=== PATIENT | female | born 2000 | race Caucasian/White ===

== ENCOUNTER 2022-02-20 22:53 | Emergency (ER) | payer BC, SELFPAY ==
[2022-02-20 22:59] VITALS: BP 111/68; PULSE 76; RESP 14; TEMP 37; O2SAT 100; BMI 20.8
[2022-02-20 23:16] LABS: Appearance Urine Cloudy (Clear); Bilirubin Urine Negative (Negative); Blood Urine 3+ (Negative); Color Urine Yellow (Yellow); Glucose Urine Negative (Negative); Ketones Urine Negative (Negative); Leukocyte Esterase Urine 1+ (Negative); Nitrite Urine Positive (Negative); Protein Urine 2+ (Negative); Specific Gravity Urine 1.025 (1.000-1.030); Urobilinogen Urine 0.2 (0.2-1.0); pH Urine 6.5 (5.0-8.5)
--- NOTE | 2022-02-20 23:20 | ED.GENADULT ---
HPI - General Adult General Chief complaint: Urogenital Problems, Female Stated complaint: Possible UTI Time Seen by Provider: 02/20/22 23:13 History of Present Illness HPI narrative: This 21-year-old female comes in reporting some dysuria symptoms that began today. She has increased frequency, pain with voiding urine, and abdominal pain. She does not report any fevers. She also is requesting STD testing for chlamydia and gonorrhea. She states that she had an encounter with a patricia about a month ago had previous contact with many others. She states that she is not having any symptoms just wants to be tested to be safe. Related Data Home Medications Medication Instructions Recorded Confirmed bupropion HCl 150 mg 24 hr tablet, mg PO 02/20/22 extended release Allergies Allergy/AdvReac Type Severity Reaction Status Date / Time amoxicillin Allergy Mild Hives Verified 02/20/22 23:05 Review of Systems Status of ROS: Reports: 10 or more systems reviewed and unremarkable except as noted in History and below Narrative: Constitutional: No fevers, no weight gain or loss. Eyes: No discharge. No vision changes. HENT: No congestion, no sore throat, no ear pain. Cardiovascular: No chest pain, no palpitations. Respiratory: No shortness of breath, no wheezes, no cough. Gastrointestinal: No abdominal pain, no vomiting, no diarrhea. Genitourinary: Dysuria symptoms as described above. Musculoskeletal: Normal range of motion. Skin: No rashes, no pruritis. Neurological: No dizziness, weakness, sensory change, speech change. Endo/Heme/Allergies: No bruising or bleeding. No polydipsia. Pysch: no suicidality, no anxiety, no insomnia. All other systems reviewed and are negative. PFSH PFS Social History Smoking Status: Current every day smoker What tobacco products do you use: cigarettes Do you use any of these nicotine containing products: None Second hand tobacco smoke exposure: No How often do you have a drink containing alcohol: monthly or less AUDIT-C Alcohol total score: 1 Non-prescribed substance use: marijuana (any form) Exam Narrative: Exam Narrative: Constitutional: Well-developed, well-nourished, no acute distress. HEENT: Normocephalic, atraumatic. Neck: Normal range of motion. Nontender. Supple. Heart: Intact distal pulses. Lungs: No chest discomfort. No wheezes, rhonchi, or rales. Abdomen: Nontender. Genitalia: No sign of abnormality. No cervical motion tenderness. Back: Normal range of motion. Extremities: Normal range of motion. No injury. Skin: Intact. No rash. Warm. No erythema or pallor. Neurologic: No altered sensation. No weakness. Alert and oriented. Psychiatric: No suicidality. No anxiety or depression. No insomnia. Nursing notes and vitals signs are reviewed. Const: Vital Signs, click to edit/add: Vital Signs - 24 hr 02/20/22 22:59 Temperature 98.6 F Pulse Rate [Pulse Oximeter] 76 Respiratory Rate 14 Blood Pressure [Le ft Upper Arm] 111/68 Pulse Oximetry 100 Oxygen Delivery Me thod Room Air Course Vital Signs Vital signs: Initial Vital Signs Temperature 98.6 F 02/20/22 22:59 Temperature Source Temporal Artery Scan 02/20/22 22:59 Pulse Rate 76 02/20/22 22:59 Respiratory Rate 14 02/20/22 22:59 Blood Pressure 111/68 02/20/22 22:59 Blood Pressure Mean 82 02/20/22 22:59 Blood Pressure Position Supine 02/20/22 22:59 Pulse Oximetry 100 02/20/22 22:59 Oxygen Delivery Method 02/20/22 22:59 Vital Signs Temperature 98.6 F 02/20/22 22:59 Pulse Rate 76 02/20/22 22:59 Respiratory Rate 14 02/20/22 22:59 Blood Pressure 111/68 02/20/22 22:59 Pulse Oximetry 100 02/20/22 22:59 Oxygen Delivery Method 02/20/22 22:59 Temperature 98.6 F 02/20/22 22:59 Pulse Rate 76 02/20/22 22:59 Respiratory Rate 14 02/20/22 22:59 Blood Pressure 111/68 02/20/22 22:59 Pulse Oximetry 100 02/20/22 22:59 Oxygen Delivery Method 02/20/22 22:59 Medical Decision Making MDM Narrative Medical decision making narrative: This patient comes in with symptoms of dysuria but also wants to be safe and is requesting testing for GC and chlamydia. The patient did have such testing done along with a wet prep. This was done in the presence of the nurse. She is not having any symptoms related to sexually transmitted disease and her last encounter was about a month ago. I did not treat her prophylactically for these reasons. She does however have a urinary tract infection and received a prescription for Keflex. She also received a tablet of peridium for symptomatic relief. Lab Data Labs: Lab Results 02/20/22 Range/Units 22:59 Urine Color Yellow (Yellow) Urine Appearance Cloudy A (Clear) Urine pH 6.5 (5.0-8.5) Ur Specific Patterson 1.025 (1.000-1.030) Urine Protein 2+ A (Negative) Urine Glucose (UA) Negative (Negative) Urine Ketones Negative (Negative) Urine Blood 3+ A (Negative) Urine Nitrite Positive A (Negative) Urine Bilirubin Negative (Negative) Urine Urobilinogen 0.2 (0.2-1.0) Ur Leukocyte Esterase 1+ A (Negative) Urine RBC 25-50 A (0-2) Urine WBC 50-100 A (0-5) Ur Squamous Epith Cells Moderate A (None-Few) Urine Bacteria Moderate A (None) Discharge Plan Discharge Clinical Impression: Urinary tract infection Patient Disposition: Home, Self-Care Condition: Stable Additional Instructions: Take medication as prescribed. Follow up with MD or return if worsening. If lab results are positive, you will be notified by phone call. Prescriptions: No Action bupropion HCl 150 mg tablet extended release 24 hr PO Follow Up/Referrals: Dany Caro MD [Primary Care Provider] - Stand Alone Forms: [facility] Info Instructions
[2022-02-20 23:32] LABS: Bacteria Urine Moderate; RBC Urine 25-50 (0-2); Squamous Epithelial Cell Urine Moderate (None-Few); WBC Urine 50-100 (0-5)
--- NOTE | 2022-02-20 23:45 | ED.NURSE ---
MD in room to obtain wet prep and Ch/GC swabs. Business Development Agent at bedside.
[2022-02-21] LABS: Clue Cells <20% Clue Cells Seen (None Seen); Trichomonas No Trichomonas Seen (None Seen); Yeast No Yeast Seen (None Seen)
[2022-02-21] MEDS: PHENAZOPYRIDINE HCL 200 MG TABLET PO (00:03)
[2022-02-21 01:24] LABS: Chlamydia DNA Amplified* NOT DETECTED (No Detected); GC DNA Amplified* NOT DETECTED (No Detected)
== END 2022-02-21 00:06 | disposition home or self-care (01) ==
PROVIDERS: Emergency Provider Emergency Medicine Emergency Medical Services; PCP Family Medicine; Referring Provider Emergency Medicine Emergency Medical Services; Visit Provider Family Medicine
DX: N39.0 Urinary tract infection, site not specified (principal)
CPT/HCPCS: 81001; 87086; 87186; 87210; 87491; 87591; 99283; 99284; A9270

== ENCOUNTER 2022-05-09 14:07 | Outpatient (CLI) | payer BC, SELFPAY ==
[2022-05-09 23:08] LABS: Chlamydia DNA Amplified* NOT DETECTED (No Detected); GC DNA Amplified* NOT DETECTED (No Detected)
== END 2022-05-09 14:08 | disposition home or self-care (01) ==
PROVIDERS: Visit Provider Nurse Practitioner Family
DX: Z11.3 Encounter for screening for infections with a predominantly sexual mode of transmission (principal); Z11.9 Encounter for screening for infectious and parasitic diseases, unspecified
CPT/HCPCS: 0353U; 86592; 86701; 86702; 86704; 86803; 87536

== ENCOUNTER 2022-05-19 19:18 | Emergency (ER) | payer BC, SELFPAY ==
[2022-05-19 19:39] VITALS: BP 125/78; PULSE 99; RESP 18; TEMP 36.8; O2SAT 99; BMI 20.8
--- NOTE | 2022-05-19 20:32 | ED_ITS ---
HPI - General Adult General Chief complaint: Cough Stated complaint: Shortness of breath from illness Time Seen by Provider: 05/19/22 20:00 History of Present Illness HPI narrative: This 21-year-old female comes in reporting 3-5 days of upper respiratory infection symptoms including cough, hoarse voice, nasal congestion. She does not report a sore throat or ear pain. She did not measure her temperature but states that she did feel feverish initially. She reports some shortness of breath with these symptoms also. She does arrive with normal vital signs. Related Data Home Medications Medication Instructions Recorded Confirmed bupropion HCl 150 mg 24 hr tablet, 150 mg PO DAILY 02/20/22 05/19/22 extended release norethindrone acetate 1 mg-ethinyl 1 tab PO DAILY 05/09/22 05/19/22 estradiol 20 mcg tablet (Junel) buspirone 10 mg tablet 10 mg PO BID 05/19/22 05/19/22 Previous Rx's Medication Instructions Recorded acetaminophen 300 mg-codeine 30 mg 1 tab PO Q6H PRN pain #15 tabs 05/19/22 tablet Allergies Allergy/AdvReac Type Severity Reaction Status Date / Time amoxicillin Allergy Mild Hives Verified 05/19/22 19:42 Review of Systems Status of ROS: Reports: 10 or more systems reviewed and unremarkable except as noted in History and below Narrative: Constitutional: No weight gain or loss. Eyes: No discharge. No vision changes. HENT: Nasal congestion, no sore throat, no ear pain. Cardiovascular: No chest pain, no palpitations. Respiratory: She reports cough and shortness of breath. Gastrointestinal: No abdominal pain, no vomiting, no diarrhea. Genitourinary: No dysuria, no hematuria. Musculoskeletal: Normal range of motion. Skin: No rashes, no pruritis. Neurological: No dizziness, weakness, sensory change, speech change. Endo/Heme/Allergies: No bruising or bleeding. No polydipsia. Pysch: no suicidality, no anxiety, no insomnia. All other systems reviewed and are negative. PFSH PFSH Medical History Routine screening for STI (sexually transmitted infection) ?Z11.3 - Encounter for screening for infections with a predominantly sexual mode of transmission (ICD-10) Unprotected sex ?Z72.51 - High risk heterosexual behavior (ICD-10) Surgical History (Updated 05/19/22 @ 20:19 by Quinton Larson RN) No significant past surgical history Social History Smoking Status: Current some day smoker What tobacco products do you use: cigarettes Do you use any of these nicotine containing products: E-Cigarettes Second hand tobacco smoke exposure: No How often do you have a drink containing alcohol: monthly or less How often do you have six or more drinks on one occasion: Never AUDIT-C Alcohol total score: 1 Non-prescribed substance use: marijuana (any form) Exam Narrative: Exam Narrative: Constitutional: Well-developed, well-nourished, no acute distress. HEENT: Normocephalic, atraumatic. Oropharynx appears normal without tonsillar hypertrophy or exudate. Tympanic membranes appear normal bilaterally. Neck: Normal range of motion. Nontender. Supple. Heart: Regular. No murmurs. Normal rate. Intact distal pulses. Lungs: Clear to auscultation. No chest discomfort. No wheezes, rhonchi, or rales. No use of accessory muscles for breathing. Abdomen: Normal bowel sounds. Nontender. No rebound tenderness. Genitalia: Deferred. Back: No midline tenderness. Normal range of motion. Extremities: Normal range of motion. No injury. Skin: Intact. No rash. Warm. No erythema or pallor. Neurologic: No altered sensation. No weakness. Alert and oriented. Psychiatric: No suicidality. No anxiety or depression. No insomnia. Nursing notes and vitals signs are reviewed. Const: Vital Signs, click to edit/add: Vital Signs - 24 hr 05/19/22 19:39 Temperature 98.2 F Pulse Rate [Right Pulse Oximeter] 99 Respiratory Rate 18 Blood Pressure [Ri ght Upper Arm] 125/78 Pulse Oximetry 99 Oxygen Delivery Me thod Room Air Course Vital Signs Vital signs: Initial Vital Signs Temperature 98.2 F 05/19/22 19:39 Temperature Source Temporal Artery Scan 05/19/22 19:39 Pulse Rate 99 05/19/22 19:39 Respiratory Rate 18 05/19/22 19:39 Blood Pressure 125/78 05/19/22 19:39 Blood Pressure Mean 93 05/19/22 19:39 Blood Pressure Position Sitting 05/19/22 19:39 Pulse Oximetry 99 05/19/22 19:39 Oxygen Delivery Method Room Air 05/19/22 19:39 Vital Signs Temperature 98.2 F 05/19/22 19:39 Pulse Rate 99 05/19/22 19:39 Respiratory Rate 18 05/19/22 19:39 Blood Pressure 125/78 05/19/22 19:39 Pulse Oximetry 99 05/19/22 19:39 Oxygen Delivery Method Room Air 05/19/22 19:39 Temperature 98.2 F 05/19/22 19:39 Pulse Rate 99 05/19/22 19:39 Respiratory Rate 18 05/19/22 19:39 Blood Pressure 125/78 05/19/22 19:39 Pulse Oximetry 99 05/19/22 19:39 Oxygen Delivery Method Room Air 05/19/22 19:39 Medical Decision Making MDM Narrative Medical decision making narrative: This patient comes in with symptoms of upper respiratory infection. She does report some feeling of shortness of breath but has normal vital signs here with oximetry at 99% on room air. She is not using accessory muscles for breathing. She did receive an oral dose of dexamethasone 10 mg. I did not hear wheezing and did not then prescribe albuterol. She did receive a prescription for tablets of Tylenol 3 for additional symptomatic relief. Discharge Plan Discharge Clinical Impression: Acute upper respiratory infection Patient Disposition: Home, Self-Care Condition: Stable Additional Instructions: Take medication as prescribed. Follow up with MD or return if worsening symptoms happen. Prescriptions: New acetaminophen-codeine 300-30 mg tablet 1 tab PO Q6H PRN (Reason: pain) Qty: 15 0RF No Action norethindrone ac-eth estradiol [03/07 (21)] 1-20 mg-mcg tablet 1 tab PO DAILY bupropion HCl 150 mg tablet extended release 24 hr 150 mg PO DAILY buspirone 10 mg tablet 10 mg PO BID Follow Up/Referrals: Provider,Not a Local [Primary Care Provider] - Stand Alone Forms: [employer] Info Instructions
[2022-05-19] MEDS: dexAMETHasone 10 MG/ML inj PO (20:40)
[2022-05-19 20:51] VITALS: BP 128/84; PULSE 90; RESP 18; TEMP 36.6; O2SAT 99
[2022-05-19 20:52] VITALS: BP 128/84; PULSE 90; RESP 18; TEMP 36.6
== END 2022-05-19 20:52 | disposition home or self-care (01) ==
PROVIDERS: Emergency Provider Emergency Medicine Emergency Medical Services
DX: J06.9 Acute upper respiratory infection, unspecified (principal)
CPT/HCPCS: 99283; 99284; J1100

== ENCOUNTER 2023-09-21 15:26 | Outpatient (CLI) | payer BC, SELFPAY ==
--- OUTSIDE RECORDS SUMMARY | 2023-09-21 15:28 | XMS_ITS | Clinical Summary ---
Author Organization [facility] Address [place], [place] [address] Care Team Providers Care Supervisor Riprap Placing Name Role Phone Sun Matthews MD Primary Care Provider [phone] Allergies Active Allergy Reactions Criticality Noted Date Comments Amoxicillin Rash,Hives Low 12/04/2012 Medications Medication Sig Dispensed Refills Start Date End Date Status albuterol HFA (VENTOLIN HFA) 90 mcg/actuation inhalerIndications:E xercise-induced asthma INHALE ONE TO TWO PUFFS BY MOUTH 15-30 MINUTES PRIOR TO EXERCISE/RUNNING 1 Inhaler 1 05/18/2019 Active triamcinolone (ARISTOCORT; KENALOG) 0.1 % creamIndications:Swi mmer's itch Apply topically to affected area(s) 3 times daily. 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 90 Tablet 12/03/2022 Active traZODone (DESYREL) 50 mg tabletIndications:Ps ychophysiological insomnia Take 0.5-1 Tablets (25-50 mg) by mouth at bedtime if needed for Sleep. 90 Tablet 12/03/2022 Active Active Problems Problem Noted Date Diagnosed Date Allergic rhinitis, cause unspecified 02/26/2012 Immunizations Name Administration Dates Next Due AMB Influenza, IIV3 (Age >=3 years) Preserve Free (Flu Clinic Only) 12/06/2010 AMB Influenza, IIV3 (Age >=3 years)(Flu Clinic Only) 12/09/2012,12/04/2011,12/04/2009,11/20 AMB Influenza, IIV4 PF (=>6 mos Flulaval,Fluzone Fluarix)(Flu Clinic Only) 12/22/2018,12/09/2016 DTaP 09/08/2007,12/15/2003 [id number]-[id number]-HNN (Pediarix) 2002,2002,0 2002 Dtap-5 Pertussis Antigens 09/08/2007,12/15/2003 HIB PRP-OMP (PedvaxHIB) 06/29/2003,2002, HIB PRP-T (ActHIB,Hiberix) 06/29/2003,2002 ,2002 HPV 9 (Gardasil 9) 10/22/2017,10/03/2015 Hepatitis A (Peds) 10/03/2015,04/25/2014 Inactivated Polio Vaccine 09/08/2007 Influenza Virus, Unspecified 11/30/2014, 12/09/2012,12/04/2011,12/06,12/04/2009,11/20/2008 Influenza, IIV3 (Age >=3 years) 11/30/2014 Influenza, IIV4 02/06/2020, 8,11/13/2015,11/10 MMR 09/08/2007,06/29/2003 Meningococcal Vaccine (Menactra) 10/04/2018,04/16 Meningococcal Vaccine (Menveo) 10/04/2018,2014 Pneumococcal conj 7-Valent (Prevnar 7) 1 ,2002,2002,07/18 Tdap 04/25/2014 Varicella Vaccine 09/08/2007,12/15/2003 Family History Medical History Relation Name Comments Diabetes Maternal Grandfather type 2 Heart Disease Maternal Uncle tricuspid va lve replacement Asthma Mother Asthma Sister related to collette rgies Cancer-breast No Family History Cancer-colon No Family History Hyperlipidemia No Family History Relation Name Status Comments Maternal Grandfather Maternal Uncle Mother Sister Social History Tobacco Use Types Packs/Day Years Used Date Smoking Tobacco: Never Smokeless Tobacco: Never Tobacco Cessation:Counseling Given: Yes Comments:no exposure Alcohol Use Standard Drinks/Week Comments Yes 0 (1 standard drink = 0.6 oz pur e alcohol) PHQ-2 Answer Date Recorded PHQ-2 TOTAL SCORE 3 05/26/2022 Social Connections Answer Date Recorded Frequency of Communication with Friends and Fami ly Not on file 07/28/2022 Alcohol Use Answer Date Recorded How often do you have a drink containing alcohol ? 2 05/26/2022 How many drinks containing a lcohol do you have on a typical day when you are drinking? 1 05/26/2022 Frequency of Binge Drinking Not on file 05/17 Financial Resource Strain Answer Date R ecorded Difficulty of Paying Living Expenses 3 07/25/2021 Difficulty of Paying Living Expenses Not on file 07/25/2021 Food Insecurity Answer Date Recorded Worried About Running Out of Food in the Last Ye ar 1 07/25/2021 Transportation Needs Answer Date Record ed Lack of Transportation (Medical) 1 07/25/2021 Housing Stability Answer Date Recorded Unable to Pay for Housing in the Last Year 1 07/25/2021 Sex and Gender Information Value Date Recorded Sex Assigned at Not on file Gender Identity Not on file Sexual Orientation Not on file Obstetrics History Para Term AB IAB SAB Ectopic Multiple Livin g Live Births 0 0 0 0 0 0 0 0 0 0 0 Last Filed Vital Signs Vital Sign Reading Time Taken Comments Blood Pressure 122/79 05/26/2022 1:29 PM CDT Pulse 85 05/26/2022 1:29 PM CDT Temperature 37.3 ??C (99.2 ??F) 12/04/2021 9:48 AM CD T Respiratory Rate 18 10/27/2021 11:34 AM CDT Oxygen Saturation 98% 12/04/2021 9:48 AM CDT Inhaled Oxygen Concentration - - Weight 58 kg (127 lb 12.8 oz) 05/26/2022 1:29 PM CDT Height 166.4 cm (5' 5.5) 04/30/2021 10:56 AM CD T Body Mass Index - - Plan of Treatment Upcoming Encounters Date Type Department Care Team (Late st Contact Info) Description 09/29/2023 7:40 AM CDT Office Visit [facility] [address] [place] [address] IvanKristian christie DO [address] [place] [address] Health Maintenance Due Date Last Done Comments Hepatitis C screening for age 18-79 2020 BMI (ht and wt on same day) for age 18+ 04/30/2022 04/30/2021, 07/04/2020, 06/19/2020 Chlamydia for age 16-24 05/09/2022 05/10/19, 01/10/2020, 04/27/2019 COVID-19 vaccine series ( season) 2022 09/22/2021 Pap test for age 21-65 05/23/2023 Depression screening for age 12+ 05/27/2023 05/26/2022, 04/09/2022, 04/08/2022, Additional history exists Influenza for age 9-49 10/18/2023 , 12/22/2018, 10/22/2017, Additional history exists Tetanus booster 04/25/2024 04/25/2014 Pneumococcal series for age 6-64 Aged Out 12/15/2003, 2002, 2002, Additional history exists No longer eligible based on patient's age to complete this topic Tdap Completed 04/25/2014 HPV series for age 9-26 Completed 10/22/2017, 10/02 HIV for age 15-65 Completed 10/04/2018 Meningococcal series for age 11-21 Completed 10/04/2018, 10/04/2018, 04/25/2014, Additional history exists Procedures Procedure Name Priority Date/Time Associated Diagnosis Comments GC CHLAMYDIA TRACH PROBE Routine 05/09/2021 9:58 AM CDT Encounter for insertion of intrauterine contraceptive device (IUD) ANTI HIV 1/2 Routine 10/04/2018 11:34 AM CDT Screening examination for STD (sexually transmitted disease) from Last 3 Months or Most Recently Relevant to Health Maintenance Results * GC & CHLAMYDIA DNA PCR [[id number]] (05/09/2021 9:58 AM CDT) CHLAMYDIA PROBE Negative 8:42 PM CDT [facility] N GONORRHOEAE PROBE Negative 05/09/2021 8:42 PM CDT [facility] Other ENDOCERVICAL CYTOLOGIC MATERIAL / Unknown Non-Blood / Unknown 05/09/2021 9:58 AM CDT 05/09/2021 10:20 AM CDT Sun Matthews MD MICRO[facility]OLOGY [facility] [address] [place] [address], * ANTI HIV 1/2 (10/04/2018 11:34 AM CDT) HIV-1/HIV-2 ANTIBODY Non-Reacti ve Non-Reacti ve 10/04/2018 5:42 PM CDT [facility] Comment:HIV-1 p24 and HIV-1/ HIV-2 Ab not detected. Blood BLOOD SPECIMEN / Unknown Venipuncture / Unknown 10/04/2018 11:34 AM CDT 10/04/2018 11:37 AM CDT Latisha Son MD SEND OUTS [facility] [address] [place] [address], from Last 3 Months or Most Recently Relevant to Health Maintenance Advance Directives * Full Code (Latest Code Status on File) Date Activated Date Inactivated Comments 01/14/2013 9:06 AM 01/14/2013 1:39 PM * Full Code Date Activated Date Inactivated Comments 01/14/2013 6:57 AM 01/14/2013 8:25 AM Care Teams Supervisor Riprap Placing Relationship Specialty Start Date End Date Sun Matthews MD [address] [place] [address] PCP - General Family Practice 09/19/20
[2023-09-21 23:32] LABS: Chlamydia DNA Amplified* NOT DETECTED (No Detected); GC DNA Amplified* NOT DETECTED (No Detected)
== END 2023-09-21 15:27 | disposition home or self-care (01) ==
PROVIDERS: PCP Family Medicine; Visit Provider Nurse Practitioner Family
DX: Z72.51 High risk heterosexual behavior (principal); Z11.3 Encounter for screening for infections with a predominantly sexual mode of transmission
CPT/HCPCS: 86592; 86703; 87491; 87591

== ENCOUNTER 2024-10-22 12:09 | Emergency (ER) | payer BC, SELFPAY ==
--- OUTSIDE RECORDS SUMMARY | 2024-10-22 12:11 | XMS_ITS | Clinical Summary ---
Author Organization [facility] Address [address] [place] [id number] Care Team Providers Care Mosaic Tiler Name Role Phone Sun Matthews MD Primary Care Provider [phone] Allergies Active Allergy Reactions Criticality Noted Date Comments Amoxicillin Rash,Hives Low 12/04/2012 Medications buPROPion (Wellbutrin XL) 150 mg Extended-Release tabletIndication s:Moderate episode of recurrent major depressive disorder (HC) Take 1 Tablet (150 mg) by mouth once daily. 30 Tablet 1 07/22/2024 Active ferrous gluconate 324 mg (37 mg iron) tabletIndication s:Iron deficiency Take one tablet by mouth every other day. 60 Tablet 08/26/2024 Active Hospital, Clinic, or Other Facility Administered Medication Ordered Dose Route Frequency Start Date End Date Status ferumoxytoL (FERAHEME) 510 mg/17 mL (30 mg/mL) injection 510 mgIndications:Iron deficiency 510 mg IV ONE TIME PRN 10/20/2024 11/18/2024 Active Active Problems Problem Noted Date Diagnosed Date Iron deficiency 08/26/2024 MDD (major depressive disord er), recurrent severe, without psychosis 07/13/2024 Allergic rhinitis, cause unspecified 02/26/2012 Encounters Date Type Department Care Team Description 10/20/2024 9:00 AM CDT Nurse/Clinic Staff Only [facility] [address] [place] [address] Infusion Therapy (Feraheme 1/2 ) 10/19/2024 Travel 10/07/2024 10:00 AM CDT Ancillary Procedure [facility] [address] [place] [address] 10/07/2024 Travel 10/06/2024 Telephone [facility] [address] [place] [address] Sun Matthews MD Referral (echo) 10/04/2024 Telephone [facility] [address] [place] [address] Olivia Trejo PA Appointment (Feraheme infusion x 2 ) 09/26/2024 10:30 AM CDT Orders Only [facility] [address] [place] [address] Lab, [facility] 09/26/2024 Travel 09/22/2024 Travel 09/05/2024 11:45 AM CDT Nurse/Clinic Staff Only [facility] [address] [place] [address] Immunization/Inject ion (TDAP VACCINE ); Immunization/Inject ion 09/05/2024 Travel 08/25/2024 7:00 AM CDT Telemedicine [facility] [address] [place] [address] Brianna Trejo NP Telehealth; Medication Management 08/25/2024 Orders Only [address] Warren [address] [place] [address] Lobito Vick 1 scan: (1-Ord) [facility] WH: EKG final signed 08/24/2024 3:00 PM CDT Office Visit [address] [place] [address] Rufus Hutchins MD Consult; CV General Cardiology New (new) 08/22/2024 Telephone [facility] [address] [facility] [address] [place] [phone] Cardiology, Anw Appointment (/) 07/22/2024 8:00 AM CDT Telemedicine [facility] [address] [place] [address] Brianna Trejo NP Telehealth from Last 3 Months Immunizations Immunization Administration Dates Next Due AMB Influenza, IIV3 (Age >=3 years) Preserve Free (Flu Clinic Only) 12/06/2010 AMB Influenza, IIV3 (Age >=3 years)(Flu Clinic Only) 12/09/2012,12/04/2011,12/04/2009,11/20 AMB Influenza, IIV4 PF (=>6 mos Flulaval,Fluzone Fluarix)(Flu Clinic Only) 12/22/2018,12/09/2016 DTaP 09/08/2007,12/15/2003 UPbD-BkzJ-MRR (Pediarix) 2002,2002,0 2002 Dtap-5 Pertussis Antigens 09/08/2007,12/15/2003 HIB PRP-OMP (PedvaxHIB) 06/29/2003,2002, HIB PRP-T (ActHIB,Hiberix) 06/29/2003,2002 ,2002 HPV 9 (Gardasil 9) 10/22/2017,10/03/2015 Hepatitis A (Peds) 10/03/2015,04/25/2014 Inactivated Polio Vaccine 09/08/2007 Influenza Virus, Unspecified 11/30/2014, 12/09/2012,12/04/2011,12/06,12/04/2009,11/20/2008 Influenza, IIV3 (Age >=3 years) 11/30/2014 Influenza, IIV4 02/06/2020, 8,11/13/2015,11/10 MENINGOCOCCAL VACCINE 2 VIAL 2MO-55YO (MENVEO) 10/04/2018,04/25/2014 MMR 09/08/2007,06/29/2003 Meningococcal Vaccine (Menactra) 10/04/2018,04/16 Pneumococcal conj 7-Valent (Prevnar 7) 1 ,2002,2002,07/18 Tdap 09/05/2024,04/25/2014 Varicella Vaccine 09/08/2007,12/15/2003 Family History Medical History Relation Name Comments Diabetes Maternal Grandfather type 2 Heart Disease Maternal Uncle tricuspid va lve replacement Asthma Mother Hyperthyroidism Paternal Aunt Asthma Sister related to collette rgies Cancer-breast No Family History Cancer-colon No Family History Hyperlipidemia No Family History Relation Name Status Comments Maternal Grandfather Maternal Uncle Mother Paternal Aunt Alive Sister Social History Tobacco Use Types Packs/Day Years Used Date Smoking Tobacco: Never Smokeless Tobacco: Never Tobacco Cessation:Counseling Given: Yes Comments:no exposure Alcohol Use Standard Drinks/Week Comments Yes 0 (1 standard drink = 0.6 oz pur e alcohol) PHQ-2 Answer Date Recorded PHQ-2 TOTAL SCORE 5 07/22/2024 Social Connections Answer Date Recorded Do you often feel lonely or isolated from those around you? 0 07/13/2024 Alcohol Use Answer Date Recorded How often do you have a drink containing alcohol ? 2 05/26/2022 How many drinks containing a lcohol do you have on a typical day when you are drinking? 1 05/26/2022 Frequency of Binge Drinking Not on file 05/17 Financial Resource Strain Answer Date R ecorded Difficulty of Paying Living Expenses 3 07/13/2024 Difficulty of Paying Living Expenses Not on file 07/13/2024 Food Insecurity Answer Date Recorded Do you worry your food will run out before you are able to buy more? 1 07/13/2024 Transportation Needs Answer Date Record ed Does lack of transportation keep you from medica l appointments? 1 07/13/2024 Does lack of transportation keep you from work, meetings or getting things that you need? 1 07/13/2024 Housing Stability Answer Date Recorded What is your housing situation today? 2 07/13/2024 Utilities Answer Date Recorded Do you have trouble paying f or utilities (for example, heat, electricity, water, phone)? 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 Gender Identity Not on file Sexual Orientation Not on file Obstetrics History Para Term AB IAB SAB Ectopic Multiple Livin g Live Births 0 0 0 0 0 0 0 0 0 0 0 Last Filed Vital Signs Vital Sign Reading Time Taken Comments Blood Pressure 100/58 10/20/2024 10:09 AM CDT Pulse 68 10/20/2024 10:09 AM CDT Temperature 36.3 C (97.4 F) 10/20/2024 10:03 AM CDT Respiratory Rate 18 10/27/2021 11:34 AM CDT Oxygen Saturation 98% 10/20/2024 10:09 AM CDT Inhaled Oxygen Concentration - - Weight 59.9 kg (132 lb) 08/24/2024 2:58 PM CDT Height 165.1 cm (5' 5) 08/24/2024 2:58 PM CDT Body Mass Index 21.97 08/24/2024 2:58 PM CDT Plan of Treatment Upcoming Encounters Date Type Department Care Team (Late st Contact Info) Description 10/27/2024 9:00 AM CDT Nurse/Clinic Staff Only [facility] [address] [place] [address] 10/27/2024 10:50 AM CDT Office Visit [facility] [address] [place] [address] Rufus Richardson MD [address] [place] [address] Health Maintenance Due Date Last Done Comments Hepatitis C screening for ag e 18-79 2020 Pneumococcal series for age 6-49 (1 of 2 - PCV) 2021 12/15/2003, 2002, 2002, Additional history exists Chlamydia for age 16-24 05/09/2022 05/10/19 22, 01/10/2020, 04/27/2019 Pap test for age 21-65 05/23/2023 COVID-19 vaccine series (2 - 2024- season) 2024 09/22/2021 Influenza Vaccine (#1) 2024 , 12/22/2018, 10/22/2017, Additional history exists Depression screening for age 12+ 07/22/2025 07/22/2024, 07/13/2024, 05/26/2022, Additional history exists BMI (ht and wt on same day) for age 18+ 08/24/2025 08/24/2024, 04/30/2021, 07/04/2020, Additional history exists Tetanus booster 09/05/2034 09/05/2024, 04/25/2014 RSV vaccine for adults or (1 - 1-dose 75+ series) 2077 Hepatitis B series for 19+ Completed 12/05, 2002, 2002 HPV series for age 9-45 Completed 10/22/2017, 10/02 HIV for age 15-65 Completed 10/04/2018 Procedures Procedure Name Priority Date/Time Associated Diagnosis Comments ECHO TTE COMPLETE WO CONTRAST Routine 10/07/2024 10:25 AM CDT Syncope and collapse Nonsustained ventricular tachycardia (HC) Ventricular pre-excitation FERRITIN Routine 09/26/2024 10:25 AM CDT Iron deficiency IRON PLUS IRON BINDING CAP Routine 09/26/2024 10:25 AM CDT Iron deficiency EKG 12 LEAD Routine 08/24/2024 Syncope and collapse Nonsustained ventricular tachycardia (HC) Ventricular pre-excitation GC CHLAMYDIA TRACH PROBE Routine 05/09/2021 9:58 AM CDT Encounter for insertion of intrauterine contraceptive device (IUD) ANTI HIV 1/2 Routine 10/04/2018 11:34 AM CDT Screening examination for STD (sexually transmitted disease) from Last 3 Months or Most Recently Relevant to Health Maintenance Results * ECHO TTE COMPLETE WO CONTRAST (10/07/2024 10:25 AM CDT) AORTIC VALVE MEAN PG 4 mmHg EJECTION FRACTION 73 % LVEDD 3.7 cm EJECTION FRACTION 70 - 75% Anatomical Region Laterality Modality Ultrasound 10/07/2024 10:0 4 AM CDT Narrative 10/07/2024 10:35 AM CDT ECHOCARDIOGRAM MALIK METZ : 2000 24 years Study Date: 10/07/2024 10:04:36 AM Gender: F BP: 120/60 mmHg Height: 165.00 cm BSA: 1.66 m Weight: 60.00 kg Tech: JUDE Referring MD: RUFUS HUTCHINS Site: [facility] Reading Location: Mobile-OP Patient Location: Outpatient. Procedure: 2D, Color Doppler and Spectral Doppler. Indication for study: Palpitations, Syncope Cardiac Rhythm: Regular.Study quality: Good. Final Impressions: 1. Normal LV size, normal wall thickness, normal global systolic function with an estimated EF of 70 - 75%. 2. Normal left ventricular size, normal wall thickness, normal global systolic function, calculated EF of 73 %. 3. Right ventricular cavity size is normal, global systolic RV function is normal. 4. No significant valve disease detected. Comparison There are no prior studies on this patient for comparison purposes. Chamber Sizes and Function Normal left ventricular size, normal wall thickness, normal global systolic function, calculated EF of 73 %. Normal left ventricular size, normal wall thickness, normal global systolic function with an estimated EF of 70 - 75%. No resting regional wall motion abnormality visualized. Left atrial size is normal. Left atrial pressure is normal. Right ventricular cavity size is normal, global systolic RV function is normal. RV wall thickness is normal. The right atrium is normal. Right atrial volume index is 17 ml/m . Right atrial area is 12 cm . The pulmonary artery is of normal size and origin. The sinus of Valsalva is normal sized. The ascending aorta is not well visualized. Valves, RV Pressures and Diastolic Function The aortic valve is normal in structure and trileaflet, no stenosis and no regurgitation. The mitral valve is normal in structure, no mitral regurgitation. Normal diastolic function. The tricuspid valve is normal in structure, regurgitation is not evident tricuspid regurgitation. The pulmonic valve is normal. No pulmonary regurgitation. Masses, Effusion, Shunts There is no pericardial effusion. The inferior vena cava is normal sized, respiratory size variation greater than 50%. No left to right shunting was detected by limited color flow Doppler interrogation of the interatrial septum. MEASUREMENTS AND CALCULATIONS 2-D Measurements and LV Function: LVID (d) 3.7 cm Planimetered EF 73 % LVID (s) 2.4 cm LV FS% (2D) 35 % IVS (d) 0.8 cm LVOT diameter 2.2 cm LVPW (d) 0.8 cm HR 66 bpm Ao Sinus 2.8 cm LA Vol index 19 ml/m2 Ao Sinus ULN 3.3 cm RA Vol index 17 ml/m2 Asc Ao ULN 3.1 cm RA area 12 cm LA 3.3 cm RV Basal Diam 3.3 cm Diastology: Mitral Tissue Doppler Pulmonary veins E Peak 1.3 m/s e', Septum 0.14 m/s Pulm s 38.3 cm/s A Peak 0.6 m/s e', Lateral 0.18 m/s Pulm d 52.7 cm/s E/A 2.3 E/e' Average 7.86 Pulm s/d ratio 0.73 DT 206 msec Aortic Valve: Vmax 1.3 m/s GUSTAVO (V) 2.78 cm VTI 0.29 m GUSTAVO (I) 2.84 cm LVOT V max 1.0 m/s Max PG 7 mmHg LVOT VTI 0.23 m Mean PG 4 mmHg SV 84 ml Dim Index 0.78 SV index 50 ml/m CO 5.5 l/min CI 3.3 l/min/m Mitral Valve: MVA 3.7 cm MV P 1/2 60 msec Tricuspid Valve and estimated PA pressures: TAPSE 2.7 cm Pulmonic Valve: PV AT 202 msec . This study was interpreted by an [facility] accredited facility. Final Procedure Note Nitin Quiroz MD - 10/07/2024 ECHOCARDIOGRAM MALIK METZ : 2000 24 years Study Date: 10/07/2024 10:04:36 AM Gender: F BP: 120/60 mmHg Height: 165.00 cm BSA: 1.66 m Weight: 60.00 kg Tech: JUDE Referring MD: RUFUS HUTCHINS Site: [facility] Reading Location: Mobile-OP Patient Location: Outpatient. Procedure: 2D, Color Doppler and Spectral Doppler. Indication for study: Palpitations, Syncope Cardiac Rhythm: Regular.Study quality: Good. Final Impressions: 1. Normal LV size, normal wall thickness, normal global systolic functionwith an estimated EF of 70 - 75%. 2. Normal left ventricular size, normal wall thickness, normal globalsystolic function, calculated EF of 73 %. 3. Right ventricular cavity size is normal, global systolic RV functionis normal. 4. No significant valve disease detected. Comparison There are no prior studies on this patient for comparison purposes. Chamber Sizes and Function Normal left ventricular size, normal wall thickness, normal globalsystolic function, calculated EF of 73 %. Normal left ventricular size,normal wall thickness, normal global systolic function with an estimatedEF of 70 - 75%. No resting regional wall motion abnormality visualized.Left atrial size is normal. Left atrial pressure is normal. Rightventricular cavity size is normal, global systolic RV function is normal.RV wall thickness is normal. The right atrium is normal. Right atrialvolume index is 17 ml/m . Right atrial area is 12 cm . The pulmonaryartery is of normal size and origin. The sinus of Valsalva is normalsized. The ascending aorta is not well visualized. Valves, RV Pressures and Diastolic Function The aortic valve is normal in structure and trileaflet, no stenosis and noregurgitation. The mitral valve is normal in structure, no mitralregurgitation. Normal diastolic function. The tricuspid valve is normal instructure, regurgitation is not evident tricuspid regurgitation. Thepulmonic valve is normal. No pulmonary regurgitation. Masses, Effusion, Shunts There is no pericardial effusion. The inferior vena cava is normal sized,respiratory size variation greater than 50%. No left to right shunting wasdetected by limited color flow Doppler interrogation of the interatrialseptum. MEASUREMENTS AND CALCULATIONS 2-D Measurements and LV Function: LVID (d) 3.7 cm Planimetered EF 73 % LVID (s) 2.4 cm LV FS% (2D) 35 % IVS (d) 0.8 cm LVOT diameter 2.2 cm LVPW (d) 0.8 cm HR 66 bpm Ao Sinus 2.8 cm LA Vol index 19 ml/m2 Ao Sinus ULN 3.3 cm RA Vol index 17 ml/m2 Asc Ao ULN 3.1 cm RA area 12 cm LA 3.3 cm RV Basal Diam 3.3 cm Diastology: Mitral Tissue Doppler Pulmonary veins E Peak 1.3 m/s e', Septum 0.14 m/s Pulm s 38.3 cm/s A Peak 0.6 m/s e', Lateral 0.18 m/s Pulm d 52.7 cm/s E/A 2.3 E/e' Average 7.86 Pulm s/d ratio 0.73 DT 206 msec Aortic Valve: Vmax 1.3 m/s GUSTAVO (V) 2.78 cm VTI 0.29 m GUSTAVO (I) 2.84 cm LVOT V max 1.0 m/s Max PG 7 mmHg LVOT VTI 0.23 m Mean PG 4 mmHg SV 84 ml Dim Index 0.78 SV index 50 ml/m CO 5.5 l/min CI 3.3 l/min/m Mitral Valve: MVA 3.7 cm MV P 1/2 60 msec Tricuspid Valve and estimated PA pressures: TAPSE 2.7 cm Pulmonic Valve: PV AT 202 msec . This study was interpreted by an [facility] accredited facility. Final Rufus Hutchins MD ECHO ORD Final R esult * IRON PLUS IRON BINDING CAP (09/26/2024 10:25 AM CDT) Pathologist [facility] IRON, TOTAL 103 40 - 190 mcg/dL [facility] IRON BINDING CAPACITY 333 250 - 450 mcg/dL (calc) [facility] % SATURATION 31 16 - 45 % (calc) [facility] Blood BLOOD SPECIMEN / Unknown 09/26/2024 10:25 AM CDT 09/26/2024 10:26 AM CDT Olivia SINCLAIR CHEMISTRY Final Res ult [facility] [address] [place] [address], [facility] [address] [place] [address] * FERRITIN (09/26/2024 10:25 AM CDT) [facility] FERRITIN 16 16 - 154 ng/mL [facility] Blood BLOOD SPECIMEN / Unknown 09/26/2024 10:25 AM CDT 09/26/2024 10:26 AM CDT Olivia SINCLAIR CHEMISTRY Final Res ult [employer] [address] [place] [address], [facility] [address] [place] [address] * EKG 12 LEAD (08/24/2024) Rufus Hutchins MD EKG ORD Final R esult * GC & CHLAMYDIA DNA PCR [[id number]] (05/09/2021 9:58 AM CDT) Pathologist [facility] CHLAMYDIA PROBE Negative 8:42 PM CDT [facility] N GONORRHOEAE PROBE Negative 05/09/2021 8:42 PM CDT [facility] Other ENDOCERVICAL CYTOLOGIC MATERIAL / Unknown Non-Blood / Unknown 05/09/2021 9:58 AM CDT 05/09/2021 10:20 AM CDT Sun Matthews MD MICROBIOLOGY Final Resul t [facility] [address] [place] [address], * ANTI HIV 1/2 (10/04/2018 11:34 AM CDT) Pathologist [facility] HIV-1/HIV-2 ANTIBODY Non-Reacti ve Non-Reacti ve 10/04/2018 5:42 PM CDT [facility] Comment:HIV-1 p24 and HIV-1/ HIV-2 Ab not detected. Blood BLOOD SPECIMEN / Unknown Venipuncture / Unknown 10/04/2018 11:34 AM CDT 10/04/2018 11:37 AM CDT us Latisha Son MD SEND OUTS Final Resul t [facility] [address] [place] [address], [place] from Last 3 Months or Most Recently Relevant to Health Maintenance Insurance [facility] Advance Directives * Full Code (Latest Code Status on File) Date Activated Date Inactivated Comments 01/14/2013 9:06 AM 01/14/2013 1:39 PM * Full Code Date Activated Date Inactivated Comments 01/14/2013 6:57 AM 01/14/2013 8:25 AM Care Teams Mosaic Tiler Relationship Specialty Start Date End Date uSn Matthews MD [address] [place] [address] PCP - General Family Practice 09/19/20
[2024-10-22 12:23] VITALS: BP 120/74; PULSE 82; RESP 16; TEMP 36.8; O2SAT 100; BMI 21.6
[2024-10-22 12:44] LABS: Appearance Urine Clear (Clear)
--- NOTE | 2024-10-22 12:50 | ED.GENADULT ---
HPI - General Adult General Date Seen: 10/22/24 Chief complaint: Vaginal Bleeding Stated complaint: Has IUD, feels like it shifted, painful Time Seen by Provider: 10/22/24 12:50 History of Present Illness HPI narrative: 24-year-old female presenting to the ER today with concern for pelvic pain. She has had a copper IUD in place for about a year. He has been having menstrual cycles which have been normal and not problematic. 2-3 weeks ago she started having some pelvic cramping unusual spotting. She is sexually active with her boyfriend. She has had negative test a couple of weeks ago. She is concerned that her IUD may have shifted. [facility] [place] She had been doing pretty well. She had a couple of months of some irregular spotting well her uterus was becoming accustomed to the IUD. Periods have been regular and predictable for the past 8-10 months. Her most recent period was about 2 or 3 weeks ago. It was later than normal. It was associated with more pelvic cramping than normal. However she had been doing well. Beginning a few days ago she started having some light vaginal spotting (much claim investigator than her normal. ) That was mostly red blood with little bit of brown blood. Along that she has had some pelvic cramping. She has also had some dyspareunia. Last night during and after intercourse she had more heavy bleeding, noted by her boyfriend. She is not having any vaginal discharge. She is not lightheaded or dizzy. She does have known low iron and actually just had an iron infusion couple of days ago. She has no history of coagulopathy. She has taken 3 tests at home and they are all negative. She has not had any urinary symptoms or dysuria or hematuria. Bowel movements have been normal. She is not having any vaginal discharge. She does not have any concern for STI. She was tested about a year ago prior to her current relationship and she believes that she and her boyfriend are both monogamous unfaithful to each other. She has not had any vaginal discharge or odor. No fever. She made appointment to see someone at the [facility] but that appointment isn't until next week. Because of worsening bleeding, she is concerned that the IUD may be malpositioned so came to the ER to get checked out. Related Data Allergies Allergy/AdvReac Type Severity Reaction Status Date / Time amoxicillin Allergy Mild Hives Verified 10/22/24 12:28 [facility] Medical History Routine screening for STI (sexually transmitted infection) ?Z11.3 - Encounter for screening for infections with a predominantly sexual mode of transmission (ICD-10) Unprotected sex ?Z72.51 - High risk heterosexual behavior (ICD-10) Surgical History No significant past surgical history Social History Smoking Status: Former smoker Second hand tobacco smoke exposure: No How often do you have a drink containing alcohol: monthly or less How often do you have six or more drinks on one occasion: Never AUDIT-C Alcohol total score: 1 Non-prescribed substance use: denies use Exam Narrative: Exam Narrative: Constitutional: Appears well-developed and well-nourished. Alert. Conversant. Non toxic. HENT: Head: Atraumatic. Nose: Nose normal. Mouth/Throat: Oral mucosa is clear and moist. no trismus. Eyes: Conjunctivae normal. EOM normal. Pupils equal, round, and reactive to light. No scleral icterus. Neck: Normal range of motion. Neck supple. No tracheal deviation present. Cardiovascular: Normal rate, regular rhythm. No gallop. No friction rub. No murmur heard. Symmetric radial artery pulses Pulmonary/Chest: Effort normal. No stridor. No respiratory distress. No wheezes. No rales. No rhonchi . No tenderness. Abdominal: Soft. No distension. No mass. No tenderness. No rebound. No guarding. Pelvic exam: Deferred by patient Musculoskeletal: RUE: Normal range of motion. No tenderness. No deformity LUE: Normal range of motion. No tenderness. No deformity RLE: Normal range of motion. No edema. No tenderness. No deformity LLE: Normal range of motion. No edema. No tenderness. No deformity Neurological: Alert and oriented to person, place, and time. Normal strength. CN II-VII intact. No sensory deficit. GCS eye subscore is 4. GCS verbal subscore is 5. GCS motor subscore is 6. Normal coordination Skin: Skin is warm and dry. No rash noted. No pallor. Normal capillary refill. Psychiatric: Normal mood. Normal affect. Const: Vital Signs, click to edit/add: Vital Signs - 24 hr 10/22/24 12:23 Temperature 98.2 F Pulse Rate [Left P ulse Oximeter] 82 Respiratory Rate 16 Blood Pressure [Ri ght Upper Arm] 120/74 Pulse Oximetry 100 Oxygen Delivery Me thod Room Air Course Course ED Course: History and physical performed in ER bed 7. Discussed our initial differential which would include IUD complication, expulsion, malposition, less likely would be uterine perforation from IUD. Also consider other gynecologic pathology as a cause for her pelvic pain including ovarian cyst, torsion, cyst rupture. Also consider possible STI (patient believes this is very unlikely). Also consider possible UTI as a cause for her pelvic pain. She is not having any GI symptoms to raise concern for colitis or proctitis. In discussion the differential patient is willing to give a urine sample (and has already provided 1). She would like us to do a pelvic ultrasound to check the position of her IUD. She politely declines pelvic exam. She does not want me to check the strings were to see if the IUD is referred in here her cervical os. She does not want STD testing at this time. Therefore will proceed with urinalysis, urine test, and pelvic ultrasound. Reevaluation(s) Reevaluation #1: Pelvic gone stone came back showing IUD malposition in the wrist low lying. No sign of perforation or complete dislodgement. Discussed with on-call OBGYN, Dr. Short. She would agree it is appropriate to remove the IUD and is low lying position it would probably help the patient symptomatically. If we do remove it here in the ER, patient needs to her contraception and then follow up with clinic for ongoing contraceptive management. Reevaluation #2: Discussed with the patient. We discussed options including moving IUD today versus leaving it in having her follow-up OBGYN clinic. She would prefer to have it removed today. Pelvic exam/IUD removal: Performed with female machine wedger. Patient was placed in the dorsal lithotomy position with her feet in the stirrups. External vaginal introitus is normal. Vaginal mucosa is normal. A lubricated vaginal speculum was inserted. The cervical os was identified and the IUD strings were identified. Cervical os looks normal. I do not see any purulent drainage, active bleeding. Cervix is closed. The IUD strings were gently grasped using a ring forceps. Then with gentle traction the IUD was removed in its entirety through the cervical os. Patient tolerated this well. After removing IUD, patient notes that she was sexually active last night. She is very concerned about potential for unwanted . We discussed that even though the IUD was low in the uterus it still should be highly effective to prevent unwanted . She however is strongly requesting morning after pill. Although there is very low true risk of , with no significant dangerous side effects to a single dose of levonorgestrel, I did order a dose for her here in the ER. She also understands that she will need alternative means of contraception going forward, until she can follow up in clinic with OBGYN for long-term care and contraceptive management. Vital Signs Vital signs: Initial Vital Signs Temperature 98.2 F 10/22/24 12:23 Temperature Source Oral 10/22/24 12:23 Pulse Rate 82 10/22/24 12:23 Respiratory Rate 16 10/22/24 12:23 Blood Pressure 120/74 10/22/24 12:23 Blood Pressure Mean 89 10/22/24 12:23 Blood Pressure Position Sitting 10/22/24 12:23 Pulse Oximetry 100 10/22/24 12:23 Oxygen Delivery Method Room Air 10/22/24 12:23 Vital Signs Temperature 98.2 F 10/22/24 12:23 Pulse Rate 82 10/22/24 12:23 Respiratory Rate 16 10/22/24 12:23 Blood Pressure 120/74 10/22/24 12:23 Pulse Oximetry 100 10/22/24 12:23 Oxygen Delivery Method Room Air 10/22/24 12:23 Temperature 98.2 F 10/22/24 12:23 Pulse Rate 82 10/22/24 12:23 Respiratory Rate 16 10/22/24 12:23 Blood Pressure 120/74 10/22/24 12:23 Pulse Oximetry 100 10/22/24 12:23 Oxygen Delivery Method Room Air 10/22/24 12:23 Medications Administered Medications: Discontinued Medications Generic Name Dose Route Start Last Admin Trade Name Freq PRN Reason Stop Dose Admin Levonorgestrel 1.5 mg 10/22/24 15:20 10/22/24 15:52 Levonorgestrel 1.5 Mg Tablet PO 10/22/24 15:21 1.5 mg ONCE ONE Administration Medical Decision Making Lab Data Labs: Lab Results 10/22/24 10/22/24 Range/Units 12:35 12:52 Urine Color Yellow (Yellow) Urine Appearance Clear (Clear) Urine pH 7.0 (5.0-8.5) Ur Specific Red [place] 1.025 (1.000-1.030) Urine Protein Negative (Negative) Urine Glucose (UA) Negative (Negative) Urine Ketones Negative (Negative) Urine Blood Trace-intact A (Negative) Urine Nitrite Negative (Negative) Urine Bilirubin Negative (Negative) Urine Urobilinogen 0.2 (0.2-1.0) Ur Leukocyte Esterase Negative (Negative) Urine RBC 0-2 (0-2) Urine WBC 0-2 (0-5) Ur Squamous Epith Cells Few (None-Few) Urine Bacteria Few A (None) Urine HCG, Qual Negative (Negative) Discharge Plan Discharge Clinical Impression: Malpositioned intrauterine device Patient Disposition: Home, Self-Care Instructions: Intrauterine Device (DC) Additional Instructions: As we discussed, we removed her IUD today. Please follow-up with the [facility] for an ER follow-up visit within the next 5-7 days. Call [phone] to arrange an ER follow-up visit. You can expect to have some mild uterine cramping and vaginal bleeding for the next few days. However if you have severe cramping, heavy bleeding, fever, lightheadedness or dizziness, or other worsening symptoms, please return to the ER immediately. We have removed her IUD today. It is very important for you to use other means of contraception such as abstinence, condoms, until you can follow-up with your doctor to arrange long-term contraceptive management. Follow Up/Referrals: Sun Matthews MD [Primary Care Provider, Obstetrics] Stand Alone Forms: [employer] Info Instructions
[2024-10-22 13:00] LABS: Ur HCG Qualitative* Negative (Negative)
--- NOTE | 2024-10-22 13:18 | CRLHL7_ITS ---
For Patients: As a result of the Century Cures Act, medical imaging exams and procedure reports are released immediately into your electronic medical record. You may view this report before your referring provider. If you have questions, please contact your health care provider. CLINICAL HISTORY: Pelvic pain TECHNIQUE: Real time, burroughs scale images were acquired of the pelvis using a transabdominal and transvaginal approach. Color Doppler analysis was performed of the ovaries. FINDINGS: The uterus measures 7.5 x 3.5 x 4.6 centimeters. Endometrium measures 6 millimeters IUD in the endometrial however appears low in position with the T portion in the mid uterine body. Ovaries are unremarkable. Right ovary measures. 3 x 2.4 x 2 centimeters Left ovary measures 2.8 x 2.5 x 3.1 centimeters Normal blood flow to both ovaries. IMPRESSION: 1. IUD in endometrial cavity low position with the T portion the in the mid uterine body. 2. Normal ovaries. Dictated by Johana Ireland MD @ 10/22/2024 2:29:12 PM (Electronically Signed)
== END 2024-10-22 15:58 | disposition home or self-care (01) ==
PROVIDERS: Emergency Provider Emergency Medicine; PCP Family Medicine
DX: R10.2 Pelvic and perineal pain (principal); T83.32XA Displacement of intrauterine contraceptive device, initial encounter
CPT/HCPCS: 58301; 76830; 81001; 81003; 81025; 87086; 99282; 99283; A9270

== ENCOUNTER 2024-11-18 14:15 | Emergency (ER) | payer BC, SELFPAY ==
[2024-11-18] VITALS (10 sets, daily range): BP systolic 109–116; BP diastolic 75–76; PULSE 70–85; RESP 12–30; TEMP 36.5; O2SAT 97–100
--- OUTSIDE RECORDS SUMMARY | 2024-11-18 14:18 | XMS_ITS | Clinical Summary ---
Author Organization [facility] Address [address] [place] [id number] Care Team Providers Care Product Accountant Name Role Phone Sun Matthews MD Primary Care Provider [phone] Allergies Active Allergy Reactions Criticality Noted Date Comments Amoxicillin Rash,Hives Low 12/04/2012 Medications buPROPion (Wellbutrin XL) 150 mg Extended-Release tabletIndications :Moderate episode of recurrent major depressive disorder (HC) Take 1 Tablet (150 mg) by mouth once daily. 30 Tablet 1 5 10/28/19 25 Discontin ued(*Med complete/ Regimen complete/ Level of care change) ferrous gluconate 324 mg (37 mg iron) tabletIndications :Iron deficiency Take one tablet by mouth every other day. 60 Tablet 5 10/28/19 25 Discontin ued(*Med complete/ Regimen complete/ Level of care change) ethinyl estradiol-norelge ken 150 mcg-35 mcg/24 hr weekly patchIndications: Encounter for contraceptive management, unspecified type Place one patch on clean, dry, hairless skin once weekly for 3 weeks then leave patch off for one week then repeat. 9 Each 3 5 11/02/19 25 Discontin ued(Reord er (E-cancel not sent)) ethinyl estradiol-norelge ken 150 mcg-35 mcg/24 hr weekly patchIndications: Encounter for contraceptive management, unspecified type Place one patch on clean, dry, hairless skin once weekly for 3 weeks then leave patch off for one week then repeat. 9 Each 3 11/15/19 25 Discontin ued(*Med complete/ Regimen complete/ Level of care change) Hospital, Clinic, or Other Facility Administered Medication Ordered Dose Route Frequency Start Date End Date Status ferumoxytoL (FERAHEME) 510 mg/17 mL (30 mg/mL) injection 510 mgIndications:Iron deficiency 510 mg IV ONE TIME PRN 10/20/2024 10/27/2024 Ended Active Problems Problem Noted Date Diagnosed Date Cervical cancer screening 11/18/2024 Overview (11/18/2024): 10/2024 NIL Plan: HPV-based test due 10/2027 IUD (intrauterine device) in place 11/14/2024 Overview (11/14/2024): Mirena IUD [facility]01/[facility] Iron deficiency 08/26/2024 MDD (major depressive disord er), recurrent severe, without psychosis 07/13/2024 Allergic rhinitis, cause unspecified 02/26/2012 Encounters Date Type Department Care Team Description 11/14/2024 12:45 PM CDT Office Visit [facility] [address] [place] [address] Waleska Butler DO IUD (Patient states she is here for string check. No new concerns); Throat Problem (Patient would like strep test she was exposed a week ago. She has congested sinus, sore throat, and head pressure. ) 11/14/2024 Travel 11/14/2024 Telephone [facility] [address] [place] [address] Rufus Richardson MD Contraception 11/06/2024 7:02 AM CDT - 11/06/2024 8:56 AM CDT Emergency [facility] Emergency Room [address] [place] [address] Concepcion Isbell MD Generalized abdominal cramping (Primary Dx) Discharge Disposition: Home Self Care 11/06/2024 Travel 10/27/2024 10:50 AM CDT Office Visit [facility] [address] [place] [address] Rufus Richardson MD Contraception (Patch is what she is looking towards, but would like to discuss options ) 10/27/2024 9:00 AM CDT Nurse/Clinic Staff Only [facility] [address] [facility] [place] [address] Infusion Therapy (Feraheme 2/2) 10/26/2024 Telephone [facility] [address] [place] [address] Rufus Richardson MD Appointment 10/26/2024 Travel 10/22/2024 Orders Only [facility] Scanner 1 scan: (1-Ord) [place], PELVIS TRANSVAGINAL, 10/22/2024 10/20/2024 9:00 AM CDT Nurse/Clinic Staff Only [address] [place] [address] Infusion Therapy (Feraheme 1/2 ) 10/19/2024 Travel 10/07/2024 10:00 AM CDT Ancillary Procedure [facility] [address] [facility] [place] [address] 10/07/2024 Travel 10/06/2024 Telephone [facility] [address] [facility] [place] [address] Sun Matthews MD Referral (echo) 10/04/[address] [place] [address] Olivia Trejo PA Appointment (Feraheme infusion x 2 ) 09/26/2024 10:30 AM CDT Orders Only [facility] [place] [address] Lab, [facility] 09/26/2024 Travel 09/22/2024 Travel 09/05/2024 11:45 AM CDT Nurse/Clinic Staff Only [address] [place] [address] Immunization/Injecti on (TDAP VACCINE ); Immunization/Injecti on 09/05/2024 Travel 08/25/2024 7:00 AM CDT Telemedicine [facility] [address] [place] [address] Brianna Trejo NP Telehealth; Medication Management 08/25/2024 Orders Only [address] [place] [address] Lobito Vick 1 scan: (1-Ord) [facility]: EKG final signed 08/24/2024 3:00 PM CDT Office Visit [address] [place] [address] Rufus Hutchins MD Consult; CV General Cardiology New (new) 08/22/2024 Telephone [facility] [address] [facility] [address] [place] [address] Cardiology, Anw Appointment (/) from Last 3 Months Immunizations Immunization Administration Dates Next Due AMB Influenza, IIV3 (Age >=3 years) Preserve Free (Flu Clinic Only) 12/06/2010 AMB Influenza, IIV3 (Age >=3 years)(Flu Clinic Only) 12/09/2012,12/04/2011,12/04/2009,11/20 AMB Influenza, IIV4 PF (=>6 mos Flulaval,Fluzone Fluarix)(Flu Clinic Only) 12/22/2018,12/09/2016 DTaP 09/08/2007,12/15/2003 [id number] (Pediarix) 2002,2002,0 2002 Dtap-5 Pertussis Antigens 09/08/2007,12/15/2003 [...] have a drink containing alcohol ? 2 11/14/2024 How many drinks containing a lcohol do you have on a typical day when you are drinking? 1 11/14/2024 How often do you have five or more drinks on one occasion? 1 11/14/2024 Financial Resource Strain Answer Date R ecorded [...] is your housing situation today? 2 07/13/2024 Interpersonal Safety Answer Date Record ed Are you being hit, kicked, p ushed or yelled at (see row info)? No 11/06/2024 Interpersonal Safety Abuse 12 - 18 Not on file 11/06/2024 Interpersonal Safety Ambulatory Vulnerability No t on file 11/06/2024 Utilities Answer Date Recorded Do you have trouble paying f or utilities (for example, heat, electricity, water, phone)? 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 Gender Identity Not on file Sexual Orientation Not on file Obstetrics History Para Term AB IAB SAB Ectopic Multiple Livin g Live Births 0 0 0 0 0 0 0 0 0 0 0 Last Filed Vital Signs Vital Sign Reading Time Taken Comments Blood Pressure 111/67 11/14/2024 1:37 PM CDT Pulse 77 11/14/2024 1:37 PM CDT Temperature 36.8 C (98.3 F) 11/14/2024 1:37 PM CDT Respiratory Rate 16 11/06/2024 6:53 AM CDT Oxygen Saturation 99% 11/14/2024 1:37 PM CDT Inhaled Oxygen Concentration - - Weight 59.6 kg (131 lb 6.4 oz) 11/14/2024 1:37 P M CDT Height 164.9 cm (5' 4.92) 11/14/2024 1:37 PM CD T Body Mass Index 21.92 11/14/2024 1:37 PM CDT Plan of Treatment Health Maintenance Due Date Last Done Comments Hepatitis C screening for ag e 18-79 2020 Pneumococcal series for age 6-49 (1 of 2 - PCV) 2021 12/15/2003, 2002, 2002, Additional history exists Chlamydia for age 16-24 05/09/2022 03/24/20 22, 01/10/2020, 04/27/2019 COVID-19 vaccine series (2024- season) 2024 09/22/2021 Influenza Vaccine (#1) 2024 , 12/22/2018, 10/22/2017, Additional history exists Depression screening for age 12+ 07/22/2025 07/22/2024, 07/13/2024, 05/26/2022, Additional history exists BMI (ht and wt on same day) for age 18+ 11/14/2025 11/14/2024, 08/24/2024, 04/30/2021, Additional history exists Pap test for age 21-65 11/15/2027 11/14/2024 Tetanus booster 09/05/2034 09/05/2024, 04/25/2014 RSV vaccine for adults or (1 - 1-dose 75+ series) 2077 Hepatitis B series for 19+ Completed 12/05, 2002, 2002 HPV series for age 9-45 Completed 10/22/2017, 10/02 HIV for age 15-65 Completed 10/04/2018 Procedures Procedure Name Priority Date/Time Associated Diagnosis Comments HEMP FIBER TAKER OFF THIN PREP PAP SCREEN IMAGED Routine 11/14/2024 2:00 PM CDT Screening for cervical cancer THROAT RAPID STREP ONLY CLINIC Routine 11/14/2024 1:45 PM CDT Sore throat US PELVIS COMPLETE TA AND TV STAT 11/06/2024 8:11 AM CDT ,SERUM QUALITATIVE STAT 11/06/2024 7:40 AM CDT SCAN-ULTRASOUND REPORT 10/22/2024 12:00 AM CDT ECHO TTE COMPLETE WO CONTRAST Routine 10/07/2024 [...] Recently Relevant to Health Maintenance Results * HEMP FIBER TAKER OFF THIN PREP PAP SCREEN IMAGED [[id number]] (11/14/2024 2:00 PM CDT) Case Report Gynecologic Cytology Report Case: [id number] Authorizing Provider: Waleska Butler DO Collected: 11/14/2024 1400 Ordering Location: [facility] Received: 11/14/2024 1426 Clinic First Screen: Oksana Weller Specimen: HEMP FIBER TAKER OFF ThinPrep Vial Screening, Cervical 11/18/2024 10:30 AM CDT [email or web address] INTERPRETATION/ RESULT NEGATIVE FOR INTRAEPITHELIAL LESION OR MALIGNANCY (NIL) (none) 11/18/2024 10:30 AM CDT [facility] [employer] LABORATORY-C ENTRAL LABORATORY at 1030 CDT SPECIMEN ADEQUACY Satisfactory for evaluation Endocervical component present 11/18/2024 10:30 AM CDT [facility] LABORATORY-C ENTRAL LABORATORY Date of LMP 10/07/2024 11/18/2024 10:30 AM CDT [facility] LABORATORY-C ENTRAL LABORATORY Last Pap Date none 11/18/2024 10:30 AM CDT [email or web address] Last Pap Result First Pap/Unknown 10:30 AM CDT [email or web address] Abnormal Pap or [place] Bx in last 5 years No 11/18/2024 10:30 AM CDT [facility] Menstrual Status Regular Periods 11/18/2024 10:30 AM CDT [facility] [place] Bx Done Today No 11/18/2024 10:30 AM CDT [facility] Additional Information None given 11/18/2024 10:30 AM CDT [facility] Comment: Cytology is screened at [facility] - [address], [place] [address] and [facility] - [address], [place] [address] and [facility] - [address] [place] [address] [facility] - [address], [place] [address] Automated Review Successful 11/18/2024 10:30 AM CDT [facility] Comment:Specimen processed s uccessfully by automated automation analyst device, ThinPrep Imaging System, [employer] Note The pap test is a screening technique, not a diagnostic procedure. It is used primarily to screen for squamous cancers and precursor lesions. Published studies have shown that it is subject to both false negative and false positive results. The pap test should not be used as the sole means to diagnose or exclude pre-malignant and malignant lesions. 11/18/2024 10:30 AM CDT [facility] Other (Cervical) Non-Blood / Unknown 11/14/2024 2:00 PM CDT 11/14/2024 2:26 PM CDT Waleska Butler DO PATHOLOGY/CYTOLOGY Final R esult [facility] [address] [place] [address], * THROAT RAPID STREP ONLY CLINIC (11/14/2024 1:45 PM CDT) POC, GROUP A STREP NOT DETECTED NOT DETECTED 11/14/2024 2:00 PM CDT [facility] Comment: The [place] [employer] recommends that a throat culture be performed if a rapid group A streptococcus assay yields a negative result. [employer] recommends Streptococcus, Group A culture. Throat SPECIMEN FROM THROAT / Unknown Non-Blood / Unknown 11/14/2024 1:45 PM CDT 11/14/2024 1:50 PM CDT us Waleska Lupe Butler DO MICROBIOLOGY Final Resu lt [facility] [address] [place] [address], [place] [phone] [facility] [address] [place] [address], [place] [phone] * US PELVIS COMPLETE TA AND TV (11/06/2024 8:11 AM CDT) Anatomical Region Laterality Modality Pelvis Ultrasound 11/06/2024 8:11 AM CDT Impressions 11/06/2024 8:36 AM CDT 1. IUD appears appropriate. 2. No acute abnormality. 3. Benign cyst versus incidental follicle at the right ovary. Narrative 11/06/2024 8:36 AM CDT For Patients: As a result of the Cures Act, medical imaging exams and procedure reports are released immediately into your electronic medical record. You may view this report before your referring provider. If you have questions, please contact your health care provider. EXAM: ULTRASOUND PELVIS COMPLETE TA AND TV LOCATION: [facility] DATE: 11/06/2024 INDICATION: Pain/tenderness. COMPARISON: None. TECHNIQUE: Transabdominal scans were performed. Endovaginal ultrasound was performed to better visualize the adnexa. FINDINGS: UTERUS: 7.8 x 3.3 x 4.5 cm. Normal in size and position with no masses. ENDOMETRIUM: 3 mm. IUD appears appropriate in position, centrally located at the endometrium extending to the fundal region. RIGHT OVARY: 2.8 x 1.9 x 2.0 cm. Septated cyst versus dominant follicle incidentally noted measuring 1.4 cm. Otherwise, normal with flow demonstrated. LEFT OVARY: 2.9 x 1.6 x 2.8 cm. Normal with flow demonstrated. No significant free fluid. Procedure Note Sandeep Fernandez MD - 11/06/2024 For Patients: As a result of the Century Cures Act, medical imagingexams and procedure reports are released immediately into your electronicmedical record. You may view this report before your referring provider.If you have questions, please contact your health care provider. EXAM: ULTRASOUND PELVIS COMPLETE TA AND TV LOCATION: [facility] DATE: 11/06/2024 INDICATION: Pain/tenderness. COMPARISON: None. TECHNIQUE: Transabdominal scans were performed. Endovaginal ultrasound wasperformed to better visualize the adnexa. FINDINGS: UTERUS: 7.8 x 3.3 x 4.5 cm. Normal in size and position with no masses. ENDOMETRIUM: 3 mm. IUD appears appropriate in position, centrally locatedat the endometrium extending to the fundal region. RIGHT OVARY: 2.8 x 1.9 x 2.0 cm. Septated cyst versus dominant follicleincidentally noted measuring 1.4 cm. Otherwise, normal with flowdemonstrated. LEFT OVARY: 2.9 x 1.6 x 2.8 cm. Normal with flow demonstrated. No significant free fluid. IMPRESSION: 1. IUD appears appropriate. 2. No acute abnormality. 3. Benign cyst versus incidental follicle at the right ovary. us Concepcion Isbell MD US Final R esult * ,SERUM QUALITATIVE (11/06/2024 7:40 AM CDT) ,SERU M Negative Negative 11/06/2024 7:59 AM CDT [facility] Blood BLOOD SPECIMEN / Unknown Non-Lab Venipuncture / Unknown 11/06/2024 7:40 AM CDT 11/06/2024 7:46 AM CDT Concepcion Isbell MD CHEMISTRY Final R esult [facility] INTERNAL ZIP [id number] [address] [place] [address] * SCAN-ULTRASOUND REPORT (10/22/2024 12:00 AM CDT) Anatomical Region Laterality Modality Other us Scanner OTHER Final Result * ECHO TTE COMPLETE WO CONTRAST (10/07/2024 [...] BSA: 1.66 m Weight: 60.00 kg Tech: [facility] Referring MD: RUFUS HUTCHINS Site: [facility] Reading Location: Mobile-OP Patient Location: [...] study was interpreted by an [facility] accredited facility. Final Procedure Note Nitin Quiroz MD - 10/07/2024 ECHOCARDIOGRAM MALIK METZ : 2000 24 years Study Date: 10/07/2024 10:04:36 AM Gender: F BP: 120/60 mmHg Height: 165.00 cm BSA: 1.66 m Weight: 60.00 kg Tech: [facility] Referring MD: RUFUS HUTCHINS Site: [facility] Reading Location: Mobile-OP Patient Location: [...] interpreted by an [facility] accredited facility. Final us Rufus Hutchins MD ECHO ORD Final R esult * IRON PLUS IRON BINDING CAP (09/26/2024 10:25 AM CDT) Pathologist [facility] IRON, TOTAL 103 40 - 190 mcg/dL [facility] IRON BINDING CAPACITY 333 250 - 450 mcg/dL (calc) [facility] % SATURATION 31 16 - 45 % (calc) [facility] Blood BLOOD SPECIMEN / Unknown 09/26/2024 10:25 AM CDT 09/26/2024 10:26 AM CDT Olivia SINCLAIR CHEMISTRY Final Res ult [facility] [address] [place] [address], [facility] [address] [place] [address] * FERRITIN (09/26/2024 10:25 AM CDT) FERRITIN 16 16 - 154 ng/mL [facility] Blood BLOOD SPECIMEN / Unknown 09/26/2024 10:25 AM CDT 09/26/2024 10:26 AM CDT Olivia SINCLAIR CHEMISTRY Final Res ult [facility] [address] [place] [phone], [facility] [address] * EKG 12 LEAD (08/24/2024) Rufus Hutchins MD EKG ORD Final R esult * GC & CHLAMYDIA DNA PCR [[id number]] (05/09/2021 9:58 AM CDT) CHLAMYDIA PROBE Negative 8:42 PM CDT [facility] TRAL LABORATORY N GONORRHOEAE PROBE Negative 05/09/2021 8:[address] [facility] Other ENDOCERVICAL CYTOLOGIC MATERIAL / Unknown Non-Blood / Unknown 05/09/2021 9:58 AM CDT 05/09/2021 10:20 AM CDT Sun Matthews MD MICROBIOLOGY Final Resul t [facility]-C[facility]AL LABORATORY [address] [place] [address], * ANTI HIV 1/2 (10/04/2018 11:34 AM CDT) HIV-1/HIV-2 ANTIBODY Non-Reacti ve Non-Reacti ve 10/04/2018 5:42 PM CDT [facility] Comment:HIV-1 p24 and HIV-1/ HIV-2 Ab not detected. Blood BLOOD SPECIMEN / Unknown Venipuncture / Unknown 10/04/2018 11:34 AM CDT 10/04/2018 11:37 AM CDT us Latisha Son MD SEND OUTS Final Resul t Performing Organization Address City/[facility]/ZIP Co de Phone Number [facility] LAB[facility]-CENTRAL LABORATORY [address] [place] [address], from Last 3 Months or Most Recently Relevant to Health Maintenance Insurance [facility] Advance Directives * Full Code (Latest Code Status on File) Date Activated Date Inactivated Comments 01/14/2013 9:06 AM 01/14/2013 1:39 PM * Full Code Date Activated Date Inactivated Comments 01/14/2013 6:57 AM 01/14/2013 8:25 AM Care Teams Product Accountant Relationship Specialty Start Date End Date Sun Matthews MD [address] [place] [address] PCP - General Family Practice 09/19/20
--- NOTE | 2024-11-18 14:43 | CRLHL7_ITS ---
For Patients: As a result of the Century Cures Act, medical imaging exams and procedure reports are released immediately into your electronic medical record. You may view this report before your referring provider. If you have questions, please contact your health care provider. Indication: Lost IUD strings Technique: Real-time sonographic images of the pelvis were obtained transvaginally (for better assessment or to better visualize the endometrium) utilizing grayscale, color, and Doppler imaging. Comparison: 10/22/2024. Findings: Uterus: Appearance: Normal. Position: Anteverted. Size: 8.9 x 3.5 x 5.2 cm. Endometrial stripe: Intrauterine device is seen within the endometrial cavity. Right ovary: Size: 3.7 x 1.9 x 1.9 cm. Appearance: Normal morphology. No masses. Left ovary: Size: 4.0 x 2.4 x 3.2 cm. Appearance: Normal morphology. 3.2 centimeters simple cyst. Free fluid: None. Impression: 1. Intrauterine device is seen within the endometrial cavity. 2. Normal sonographic appearance of the bilateral ovaries. Dictated by Maico Corado MD @ 11/18/2024 4:10:57 PM (Electronically Signed)
--- NOTE | 2024-11-18 14:54 | ED.GENADULT ---
HPI - General Adult General Chief complaint: Syncope/Fainted Stated complaint: Fainted half hour ago Time Seen by Provider: 11/18/24 14:30 Source: patient Mode of arrival: ambulatory Limitations: no limitations History of Present Illness HPI narrative: 24-year-old female presenting today after an episode of presyncope. Patient states she was feeling a little lightheaded today, but denies vertigo. No nausea or vomiting. She was working outside. She thought perhaps she needed to eat so she went and had lunch. Shortly after she was back to work she started feeling more lightheaded and both hands started feeling tingly. She states that she walked to her car got inside in her vision went black. This lasted a few seconds. She states that she did not pass out completely. She was able to hear things around her when this was happening. She then recovered but felt week afterwards, again continue to tingling of her upper extremities. She was not diaphoretic or nauseous. She did not vomit. She denies chest pain. She has no headache. No ringing in her ears. She states this has happened in her handful of times before over the last few years. She does have a history of palpitations and is currently undergoing a workup for that. She states that she recently had a heart monitor placed in saw cardiology. She states that she is currently undergoing laboratory investigations for this as well. She was told that she had 2 iron infusions this October. Her other concern today is that she had an IUD replaced about 3 weeks ago and she recently was unable to find her strings. She is not having any abdominal pain. She is unclear however if her IUD is still in place. She states that she went to a clinic this last week were the provider was unable to find her strings but no other examinations were done. Related Data Home Medications ?Medication ?Instructions ?Recorded ?Confirmed No Known Home Medications 11/18/24 11/18/24 Allergies Allergy/AdvReac Type Severity Reaction Status Date / Time amoxicillin Allergy Mild Hives Verified 11/18/24 14:24 Review of Systems Status of ROS: Reports: 10 or more systems reviewed and unremarkable except as noted in History and below PFSH PFSH Medical History Routine screening for STI (sexually transmitted infection) ?Z11.3 - Encounter for screening for infections with a predominantly sexual mode of transmission (ICD-10) Unprotected sex ?Z72.51 - High risk heterosexual behavior (ICD-10) Surgical History No significant past surgical history Social History Smoking Status: Former smoker Second hand tobacco smoke exposure: No How often do you have a drink containing alcohol: monthly or less How often do you have six or more drinks on one occasion: Never AUDIT-C Alcohol total score: 1 Non-prescribed substance use: denies use Exam Narrative: Exam Narrative: Well-nourished well-developed patient in no acute distress. Alert and oriented. Answers questions appropriately. Mood and affect are appropriate. Thoughts are goal oriented and rational. No tangential or magical thinking noted. Patient speaks in full sentences without needing to catch her breath. HEENT: Normocephalic atraumatic. Pupils are equally round reactive to light. Extraocular muscles are intact. Conjunctivae are moist without any icterus noted. Moist mucous membranes. Posterior pharynx is normal. Neck is soft without any lymphadenopathy or thyromegaly. No masses are appreciated. Cardiovascular: Heart is regular rate and rhythm S1 and S2 are present without any murmurs. Lungs: Clear to auscultation bilaterally no wheezes rhonchi or rales are appreciated. Patient takes deep breaths without any discomfort. Abdomen: Soft and nontender nondistended with normal bowel sounds. No guarding or rebound. Extremities: Bilateral lower extremities are without edema. Normal DP and PT pulses. Skin: Well perfused without any obvious rashes. Strength is 5/5 of the upper and lower extremities. Reflexes are 2+ and symmetric at the knees. Romberg sign is negative. Cranial nerves 3-12 are normal. [id number] is normal. There is no nystagmus either horizontally or vertically. Gait is normal. Const: Vital Signs, click to edit/add: Vital Signs - 24 hr 11/18/24 14:18 Temperature 97.7 F Pulse Rate [Pulse Oximeter] 85 Respiratory Rate 18 Blood Pressure [Ri ght Upper Arm] 116/75 Pulse Oximetry 97 Oxygen Delivery Me thod Room Air Course Course ED Course: EKG shows normal sinus rhythm with a rightward axis deviation. Pulse is 85. Blood work unremarkable. UA unremarkable, not a great specimen. Ultrasound shows IUD in appropriate location. Vital Signs Vital signs: Initial Vital Signs Temperature 97.7 F 11/18/24 14:18 Temperature Source Temporal Artery Scan 11/18/24 14:18 Pulse Rate 85 11/18/24 14:18 Respiratory Rate 18 11/18/24 14:18 Blood Pressure 116/75 11/18/24 14:18 Blood Pressure Mean 88 11/18/24 14:18 Pulse Oximetry 97 11/18/24 14:18 Oxygen Delivery Method Room Air 11/18/24 14:18 Vital Signs Temperature 97.7 F 11/18/24 14:18 Pulse Rate 85 11/18/24 14:18 Respiratory Rate 18 11/18/24 14:18 Blood Pressure 116/75 11/18/24 14:18 Pulse Oximetry 97 11/18/24 14:18 Oxygen Delivery Method Room Air 11/18/24 14:18 Temperature 97.7 F 11/18/24 14:18 Pulse Rate 85 11/18/24 14:18 Respiratory Rate 18 11/18/24 14:18 Blood Pressure 116/75 11/18/24 14:18 Pulse Oximetry 97 11/18/24 14:18 Oxygen Delivery Method Room Air 11/18/24 14:18 Medical Decision Making MDM Narrative Medical decision making narrative: 24-year-old female with presyncopal episode, not the 1st time this has happened. Patient currently undergoing workup as an outpatient Lab Data Lab results reviewed: Yes I reviewed the patient's lab results Labs: Lab Results 11/18/24 11/18/24 Range/Units 14:54 15:05 WBC 6.90 (4.50-11.00) K/uL RBC 3.96 L (4.00-5.20) m/uL Hgb 11.7 L (12.0-16.0) gm/dL Hct 35.0 (33.0-51.0) % MCV 88 (80-100) fL MCH 30 (26-34) pg MCHC 33 (32-36) gm/dL RDW Coeff of [place]ola 12.2 (11.5-15.5) % Plt Count 216 (140-440) K/uL Neut % (Auto) 69.9 (42.0-72.0) % Lymph % (Auto) 21.0 (20-44) % [place] % (Auto) 8.7 (0.0-11.0) % Eos % (Auto) 0.1 (0.0-7.0) % Baso % (Auto) 0.3 (0.0-3.0) % Neut # (Auto) 4.82 (1.7-7.0) K/uL Lymph # (Auto) 1.45 (0.90-2.90) K/uL [place] # (Auto) 0.60 (0.00-0.90) K/UL Eos # (Auto) 0.01 (0.00-0.50) K/uL Baso # (Auto) 0.02 (0.00-0.30) K/uL Abs Immat Gran (auto) 0.00 (0.00-0.30) K/uL Imm/Tot Granulo (auto) 0.0 % Sodium 136 (135-149) mmol/L Potassium 3.8 (3.6-5.1) mmol/L Chloride 101 (96-114) mmol/L Carbon Dioxide 30 (20-32) mmol/L Anion Gap 5 L (7-15) mEq/L BUN 18 (5-24) mg/dL Creatinine 0.7 (0.5-1.5) mg/dL Estimated GFR 125 ml/min Glucose 144 H (60-115) mg/dL Lactate 1.2 (0.5-1.9) mmol/L Calcium 9.1 (8.4-10.6) mg/dL Magnesium 1.9 (1.5-2.6) mg/dL Total Bilirubin 0.6 (0.1-1.5) mg/dL Direct Bilirubin 0.1 (0.0-0.5) mg/dL AST 25 (12-35) U/L ALT 15 (4-35) U/L Alkaline Phosphatase 41 (40-150) U/L Troponin I < 0.01 (0.01-0.04) ng/mL Total Protein 6.9 (6.0-8.3) g/dL Albumin 4.3 (3.3-5.0) g/dL TSH 1.200 (0.270-4.20) uIU/mL HCG, Qual Negative (Negative) Urine Color Yellow (Yellow) Urine Appearance Cloudy A (Clear) Urine pH 7.5 (5.0-8.5) Ur Specific [place] 1.020 (1.000-1.030) Urine Protein Trace A (Negative) Urine Glucose (UA) Negative (Negative) Urine Ketones 1+ A (Negative) Urine Blood Negative (Negative) Urine Nitrite Negative (Negative) Urine Bilirubin Negative (Negative) Urine Urobilinogen 0.2 (0.2-1.0) Ur Leukocyte Esterase Negative (Negative) Urine RBC 0-2 (0-2) Urine WBC 2-5 (0-5) Ur Squamous Epith Cells Moderate A (None-Few) Amorphous Sediment Moderate A (None) Urine Bacteria Moderate A (None) Urine HCG, Qual Cancelled Imaging Data US - abdomen: Attestation: I have reviewed the pertinent imaging results. Radiologist's impression: Technique: Real-time sonographic images of the pelvis were obtained transvaginally (for better assessment or to better visualize the endometrium) utilizing grayscale, color, and Doppler imaging. Comparison: 10/22/2024. Findings: Uterus: Appearance: Normal. Position: Anteverted. Size: 8.9 x 3.5 x 5.2 cm. Endometrial stripe: Intrauterine device is seen within the endometrial cavity. Right ovary: Size: 3.7 x 1.9 x 1.9 cm. Appearance: Normal morphology. No masses. Left ovary: Size: 4.0 x 2.4 x 3.2 cm. Appearance: Normal morphology. 3.2 centimeters simple cyst. Free fluid: None. Impression: 1. Intrauterine device is seen within the endometrial cavity. 2. Normal sonographic appearance of the bilateral ovaries. ECG Data Attestation: I personally reviewed and interpreted this ECG as follows: Discharge Plan Discharge Clinical Impression: Pre-syncope Patient Disposition: Home, Self-Care Condition: Stable Additional Instructions: IUD in the appropriate location. Workup today was unremarkable. Follow-up with your primary care doctor as needed, continue cardiovascular workup. Prescriptions: No Action No Known Home Medications Follow Up/Referrals: Sun Matthews MD [Primary Care Provider, Obstetrics] Stand Alone Forms: [employer] Info Instructions
[2024-11-18 15:01] LABS: Hematocrit* 35.0 % (33.0-51.0); Hemoglobin* 11.7 gm/dL (12.0-16.0); Immature Granulocytes Abs Auto 0.00 K/uL (0.00-0.30); Immature Granulocytes Pct Auto 0.0 %; Lymphocytes Absolute Auto 1.45 K/uL (0.90-2.90); Mean Corpuscular HGB Conc 33 gm/dL (32-36); Mean Corpuscular Hemoglobin 30 pg (26-34); Mean Corpuscular Volume 88 fL (80-100); RDW Coefficient of Variation % 12.2 % (11.5-15.5); Red Blood Count* 3.96 m/uL (4.00-5.20); White Blood Count* 6.90 K/uL (4.50-11.00)
[2024-11-18 15:11] LABS: Lactate* 1.2 mmol/L (0.5-1.9)
[2024-11-18 15:13] LABS: Albumin* 4.3 g/dL (3.3-5.0); Chloride* 101 mmol/L (96-114); Potassium* 3.8 mmol/L (3.6-5.1); Sodium* 136 mmol/L (135-149)
[2024-11-18 15:14] LABS: Slide Review Reflex No
[2024-11-18 15:16] LABS: Alanine Aminotransferase* 15 U/L (4-35); Alkaline Phosphatase* 41 U/L (40-150); Anion Gap 5 mEq/L (7-15); Aspartate Amino Transferase* 25 U/L (12-35); Bilirubin Direct* 0.1 mg/dL (0.0-0.5); Bilirubin Total* 0.6 mg/dL (0.1-1.5); Blood Urea Nitrogen* 18 mg/dL (5-24); Calcium* 9.1 mg/dL (8.4-10.6); Carbon Dioxide* 30 mmol/L (20-32); Creatinine* 0.7 mg/dL (0.5-1.5); Estimated Glomerular Filt Rate 125 ml/min; Glucose* 144 mg/dL (60-115); Total Protein* 6.9 g/dL (6.0-8.3)
[2024-11-18 15:18] LABS: Appearance Urine Cloudy (Clear)
[2024-11-18 16:35] LABS: HCG Qualitative Serum* Negative (Negative)
== END 2024-11-18 17:24 | disposition home or self-care (01) ==
PROVIDERS: Emergency Provider Family Medicine; PCP Family Medicine
DX: R55 Syncope and collapse (principal)
CPT/HCPCS: 36415; 76830; 80048; 80076; 81001; 81025; 83605; 83735; 84443; 84484; 84703; 85025; 87086; 93005; 99284

== ENCOUNTER 2024-12-22 13:26 | Outpatient (CLI) | payer BC, SELFPAY ==
[2024-12-22 23:14] LABS: Chlamydia DNA Amplified* NOT DETECTED (No Detected); GC DNA Amplified* NOT DETECTED (No Detected)
== END 2024-12-22 13:27 | disposition home or self-care (01) ==
LOC: NFLDUCREF 13:26
PROVIDERS: PCP Family Medicine; Visit Provider Physician Assistant
DX: R10.9 Unspecified abdominal pain (principal)
CPT/HCPCS: 87491; 87591